=== PATIENT | female | born 1990 | race Caucasian/White ===

== ENCOUNTER 2016-08-08 08:55 | Emergency (ER) | payer OTHER ==
[~2016-08-08] VITALS: Ht 172.7 cm; Wt 204.5 kg
[~2016-08-08 08:55] MED LIST: FIORICET,ESG1 TABLET PO; PRENAPLUS TABL1 EACH
[2016-08-08] MEDS ORDERED: MUCUS-ER MAX1200 MG PO (10:54)
[2016-08-08] MEDS ORDERED: TESSALON PERLE100 MG PO (10:54)
[2016-08-08] MEDS ORDERED: CHERATUSSIN AC473 ML PO (10:54)
[2016-08-08] MEDS ORDERED: VENTOLIN HFA18 GM IH (11:02)
[2016-08-08 11:05] VITALS: BP 118/72
== END 2016-08-08 11:11 | disposition home or self-care (01) ==
LOC: EME 08:55
DX: J06.9 Acute upper respiratory infection, unspecified (principal); J34.89 Other specified disorders of nose and nasal sinuses
CPT/HCPCS: 71020; 93005; 94640; 99281; 99283

== ENCOUNTER 2016-10-30 10:51 | Emergency (ER) | payer OTHER ==
[~2016-10-30] VITALS: Ht 172.7 cm; Wt 204.0 kg
[~2016-10-30 10:51] MED LIST changes: +CHERATUSSIN AC473 ML PO; +MUCUS-ER MAX1200 MG PO; +TESSALON PERLE100 MG PO; +VENTOLIN HFA18 GM IH
[2016-10-30 13:05] LABS: HEMATOCRIT 38.3 % (36.0-46.0); MCH 27.4 PG (29.0-34.0); MCHC 31.9 G/DL (30.0-36.0); MCV 86.1 FL (83-99); MEAN PLAT.VOLUME 9.3 uM^3 (9.5-12.4); PLATELET COUNT 230 K/uL (156-360); RBC DIS.WIDTH-CV 13.4 % (11.8-14.6); RBC DIS.WIDTH-SD 41.6 % (39-53); RED BLOOD COUNT 4.45 M/uL (3.80-5.20); WHITE BLOOD COUNT 10.9 K/uL (4.1-10.2)
[2016-10-30 13:16] LABS: ADD MIUA? YES; BILIRUBIN NEGATIVE; BLOOD MODERATE; COLOR STRAW ((YELLOW)); GLUCOSE (STRIP) NEGATIVE; KETONES NEGATIVE; LEUKOCYTES LARGE; NITRITE NEGATIVE; PROTEIN (STRIP) NEGATIVE; SPECIFIC GRAVITY 1.008 (1.000-1.030); UROBILINOGEN 0.2 MG/DL (0.2-1.0)
[2016-10-30 13:24] LABS: CHLORIDE 107 mEq/L (99-109); POTASSIUM 3.9 mEq/L (3.7-5.4); SODIUM 140 mEq/L (136-147)
[2016-10-30 13:26] LABS: BACTERIA RARE /HPF; EPITHELIAL CELLS 1+ /HPF; MUCUS TRACE /LPF; RED BLOOD CELLS 0-5 /HPF (0-5); WHITE BLOOD CELLS 30-40 /HPF (0-5)
[2016-10-30 13:26] LABS: GLUCOSE 92 mg/dL (70-99)
[2016-10-30 13:27] LABS: ANION GAP 8 MEQ/L (2-14)
[2016-10-30 13:30] LABS: GFR ESTIMATE (CALCULATED) > 59 mL/min/
[2016-10-30 13:31] LABS: UREA NITROGEN (BUN) 8 mg/dL (9-23)
[2016-10-30 13:40] LABS: QUANTITATIVE HCG < 4.0 MIU/ML
[2016-10-30 13:54] LABS: TROP-I INTERPRETATION NEGATIVE; TROPONIN-I < 0.01 ng/mL (0.0-0.30)
[2016-10-30] MEDS ORDERED: ZOFRAN ODT4 MG PO (14:45)
[2016-10-30] MEDS ORDERED: KEFLEX500 MG PO (14:45)
[2016-10-30 15:31] VITALS: BP 140/68
== END 2016-10-30 15:33 | disposition home or self-care (01) ==
LOC: EME 10:51
PROVIDERS: Emergency Medicine; Nurse Practitioner Family
DX: R51 Headache (principal); R11.2 Nausea with vomiting, unspecified; R00.2 Palpitations; N39.0 Urinary tract infection, site not specified
CPT/HCPCS: 80048; 81003; 84484; 84702; 85027; 93005; 99281; 99285; J1200; J1885; J2765; J7030

== ENCOUNTER 2017-06-11 11:39 | Outpatient (CLI) | payer OTHER ==
[~2017-06-11] VITALS: Ht 172.7 cm; Wt 206.3 kg
[~2017-06-11 11:39] MED LIST changes: +KEFLEX500 MG PO; +ZOFRAN ODT4 MG PO
[2017-06-11 12:12] VITALS: BP 128/90
[2017-06-11 12:57] LABS: APPEARANCE SL.HAZY ((CLEAR)); BILIRUBIN NEGATIVE; BLOOD SMALL; COLOR YELLOW ((YELLOW)); GLUCOSE (STRIP) NEGATIVE; KETONES NEGATIVE; LEUKOCYTES LARGE; NITRITE NEGATIVE; PROTEIN (STRIP) NEGATIVE; SPECIFIC GRAVITY 1.009 (1.000-1.030); UROBILINOGEN 0.2 MG/DL (0.2-1.0)
[2017-06-11 12:57] LABS: BASOPHIL (%) 0.1 % (0-1); EOSINOPHIL (%) 0.3 % (0-5); HEMATOCRIT 31.8 % (36.0-46.0); HEMOGLOBIN 10.4 G/DL (11.9-15.5); IMMATURE GRANULOCYTE (%) 0.3 % (0.0-0.7); LYMPHOCYTE (%) 9.4 % (15-42); LYMPHOCYTE COUNT 0.9 K/uL (1.0-2.8); MCH 29.3 PG (29.0-34.0); MCHC 32.7 G/DL (30.0-36.0); MCV 89.6 FL (83-99); MONOCYTE (%) 5.5 % (3-12); MONOCYTE COUNT 0.5 K/uL (0-0.8); NEUTROPHIL (%) 84.4 % (45-76); NEUTROPHIL COUNT 8.1 K/uL (1.8-6.4); NRBC (%) 0.6 /100 WBC (0-0); PLATELET COUNT 205 K/uL (156-360); RBC DIS.WIDTH-SD 45.7 % (39-53); RED BLOOD COUNT 3.55 M/uL (3.80-5.20); WHITE BLOOD COUNT 9.6 K/uL (4.1-10.2)
[2017-06-11 13:06] VITALS: BP 133/75
[2017-06-11 13:11] LABS: BACTERIA RARE /HPF; EPITHELIAL CELLS 1+ /HPF; MUCUS TRACE /LPF; RED BLOOD CELLS 0-5 /HPF (0-5); UCUL ADDED? YES; WHITE BLOOD CELLS 40-50 /HPF (0-5)
[2017-06-11 13:14] LABS: AMPHETAMINE NEGATIVE (500 ng/mL); BARBITURATES NEGATIVE (200 ng/mL); BENZODIAZEPINES NEGATIVE (150 ng/mL); BUPRENORPHINE NEGATIVE (10 ng/mL); COCAINE NEGATIVE (150 ng/mL); METHADONE NEGATIVE (200 ng/mL); METHAMPHETAMINE NEGATIVE (500 ng/mL); OPIATES (MORPHINE) NEGATIVE (100 ng/mL); OXYCODONE NEGATIVE (100 ng/mL); PHENCYCLIDINE NEGATIVE (25 ng/mL); PROPOXYPHENE NEGATIVE (300 ng/mL); THC CANNABINOIDS NEGATIVE (50 ng/mL); TRICYCLIC ANTIDEPRESSANTS NEGATIVE (300 ng/mL)
[2017-06-11 13:20] LABS: ALBUMIN 3.4 g/dL (3.2-4.8)
[2017-06-11 13:21] LABS: AMYLASE 45 IU/L (1-118); CHLORIDE 109 mEq/L (99-109); POTASSIUM 4.2 mEq/L (3.7-5.4); SODIUM 141 mEq/L (136-147)
[2017-06-11 13:23] LABS: GLUCOSE 94 mg/dL (70-99); TOTAL PROTEIN 6.3 g/dL (6.4-8.3)
[2017-06-11 13:25] LABS: TOTAL BILIRUBIN 0.2 mg/dL (0.0-1.0)
[2017-06-11 13:26] LABS: ALKALINE PHOSPHATASE 102 IU/L (3-129)
[2017-06-11 13:27] LABS: CREATININE 0.6 mg/dL (0.6-1.3); GFR ESTIMATE (CALCULATED) > 59 mL/min/
[2017-06-11 13:28] LABS: AST (GOT) 10 IU/L (2-34); UREA NITROGEN (BUN) 6 mg/dL (9-23)
[2017-06-11 13:29] LABS: ALT (GPT) 11 IU/L (3-49)
[2017-06-11 13:30] LABS: LIPASE 7 U/L (1.0-51.0)
[2017-06-11 14:06] VITALS: BP 139/79
[2017-06-11] MEDS ORDERED: PRENATAL TABLE1 EAC3 PO (14:31)
[2017-06-11 17:30] LABS: UR CREATININE CONCENTRATION 65.7 MG/DL
== END 2017-06-11 14:51 | disposition home or self-care (01) ==
LOC: LDRP-OP 11:39 → 2WEST 11:40 → LDRP-OP 09-13 12:16
PROVIDERS: Advanced Practice Midwife
DX: O26.893 Other specified pregnancy related conditions, third trimester (principal); R10.9 Unspecified abdominal pain; O99.213 Obesity complicating pregnancy, third trimester; E66.01 Morbid (severe) obesity due to excess calories; Z3A.31 31 weeks gestation of pregnancy; O99.713 Diseases of the skin and subcutaneous tissue complicating pregnancy, third trimester; R21 Rash and other nonspecific skin eruption
CPT/HCPCS: 59025; 80053; 81003; 82150; 82570; 83690; 84156; 85025; 87086; G0378

== ENCOUNTER 2017-07-04 11:18 | Outpatient (CLI) | payer OTHER ==
[~2017-07-04] VITALS: Ht 172.7 cm; Wt 208.7 kg
[~2017-07-04 11:18] MED LIST changes: +PRENATAL TABLE1 EAC3 PO
[2017-07-04 12:01] VITALS: BP 122/79
[2017-07-04 16:11] VITALS: BP 139/78
== END 2017-07-04 16:25 | disposition home or self-care (01) ==
LOC: LDRP-OP 11:18 → 2WEST 11:19 → LDRP-OP 09-13 15:04
DX: O36.8130 Decreased fetal movements, third trimester, not applicable or unspecified (principal); O99.213 Obesity complicating pregnancy, third trimester; E66.01 Morbid (severe) obesity due to excess calories; Z3A.34 34 weeks gestation of pregnancy
CPT/HCPCS: 76818; G0378

== ENCOUNTER 2017-07-21 12:57 | Outpatient (CLI) | payer OTHER ==
[~2017-07-21] VITALS: Ht 175.3 cm; Wt 213.0 kg
[2017-07-21 13:15] VITALS: BP 135/77
[2017-07-21 15:57] VITALS: BP 135/74
== END 2017-07-21 19:11 | disposition home or self-care (01) ==
LOC: LDRP-OP 12:57 → 2WEST 12:58 → LDRP-OP 09-13 18:17
DX: O36.8130 Decreased fetal movements, third trimester, not applicable or unspecified (principal); O47.03 False labor before 37 completed weeks of gestation, third trimester; O99.213 Obesity complicating pregnancy, third trimester; E66.01 Morbid (severe) obesity due to excess calories; Z68.45 Body mass index [BMI] 70 or greater, adult; Z3A.36 36 weeks gestation of pregnancy; Z82.49 Family history of ischemic heart disease and other diseases of the circulatory system; Z83.3 Family history of diabetes mellitus
CPT/HCPCS: 59025; 76818; G0378